=== PATIENT | female | born 1960 | race Caucasian/White ===

== ENCOUNTER → 2016-06-06 | Outpatient (CLI) | payer OTHER ==
[~2016-06-06] MED LIST: IOHEXOL 240 MG/ML 50ML VIAL. PO ONE; IOHEXOL 300 MG/ML 100ML VIAL. IV ONE; METO25TA2 PO
--- NOTE | 2016-06-06 10:19 | KCIC ---
PROCEDURE CT abdomen and pelvis with contrast. HISTORY Abdominal pain inflammation noted on an upper endoscopy per patient. Symptoms for 18 months. TECHNIQUE Axial images and coronal and sagittal re-formatted images are provided. Oral contrast and 100 milliliters of intravenous Omnipaque 300 was administered without complication. One or more of the following individualized dose reduction techniques were utilized for this exam: 1. Automated exposure control. 2. Adjustment of the mA and/or kV according to patient's size. 3. Use of iterative reconstruction technique. COMPARISON Ultrasound from December 16, 2015. FINDINGS There is minimal atelectasis or scarring in the right lung base. There is no pleural effusion. The heart is not enlarged. There is fatty infiltration of the liver. Gallbladder is unremarkable. Spleen is not enlarged. Pancreas and adrenals are unremarkable. Kidneys are symmetrically perfused. Aorta is normal caliber. There is a circumaortic left renal vein which is a normal vascular variant. There is no small bowel obstruction or mural thickening. There is a normal appendix. There are a few diverticula in the colon, there are no secondary findings to suggest a diverticulitis. Bladder is unremarkable. Uterus is presumed surgically absent. There are calcified phleboliths. There are minimal degenerative changes in the spine. IMPRESSION - No acute abdominal findings. - Diverticulosis in the colon without findings of diverticulitis. Electronically signed by: Renan Tariq MD (Jun 06, 2016 10:18:19)
== END | disposition home or self-care (01) ==
LOC: KCIC CT 08:26
PROVIDERS: ATTEND Internal Medicine Gastroenterology
DX: K57.30 Diverticulosis of large intestine without perforation or abscess without bleeding (principal); I87.8 Other specified disorders of veins
CPT/HCPCS: 74177; Q9966; Q9967